=== PATIENT | female | born 1960 | race Two or more races ===

== ENCOUNTER 2025-08-07 18:55 | Emergency (ER) | payer OTHER ==
[~2025-08-07] VITALS: Ht 162.6 cm; Wt 70.8 kg
[2025-08-07] MEDS ORDERED: COZAAR100 MG (19:13)
[2025-08-07] MEDS ORDERED: ACETAMINOPHEN 500 MG GEL..CAP PO ONE ×2 (19:30→20:32)
[2025-08-07] MEDS ORDERED: ORPHENADRINE CITRATE 30 MG/ML AMPUL IM ONE (19:30)
[2025-08-07] MEDS ORDERED: ORPHENADRINE CITRATE 30 MG/ML AMPUL ONE (20:32)
[2025-08-07 20:58] LABS: BASO % 1.1 % (0.1-1.2); EOS # 0.22 (0.04-0.54); EOS % 3.5 % (0.7-7.0); LYMPH # 2.12 (1.18-3.74); LYMPH % 33.7 % (19.3-53.1); MEAN PLATELET VOLUME 9.80 fl (9.4-12.4); MONO # 0.40 (0.24-0.82); MONO % 6.4 % (4.7-12.5); NEUT # 3.47 (1.56-6.13); NEUT % 55.1 % (34.0-71.1); RED CELL DISTRIBUTION WIDTH 13.7 % (11.6-14.4)
[2025-08-07 21:23] LABS: ALT/SGPT 20.0 U/L (12-78); AST/SGOT 13.0 U/L (15-37); BILIRUBIN TOTAL 0.15 mg/dL (0.3-1.2); BUN CREA RATIO 21.0 (7.0-25.0); CREATININE SERUM 1.15 mg/dL (0.55-1.02); GFR 47.06; GLOBULINA 3.8 G/DL (2.4-3.5); GLUCOSE FASTING 101.0 mg/dL (65-100); OSMOLALITY SERUM 291.0 MOSM/KG (275-295)
[2025-08-07] MEDS ORDERED: NORFLEX100MG PO (23:04)
== END 2025-08-07 23:31 ==
LOC: ER 18:55
PROVIDERS: General Practice
DX: R07.89 Other chest pain (principal); R20.0 Anesthesia of skin; I10 Essential (primary) hypertension; Z88.0 Allergy status to penicillin; Z88.6 Allergy status to analgesic agent
CPT/HCPCS: 36415; 70450; 71046; 93005; 96372; 99284; J0696